=== PATIENT | female | born 1985 | race Caucasian/White ===

== ENCOUNTER 2020-08-17 17:07 | Emergency (ER) | payer OTHER ==
[~2020-08-17] VITALS: Ht 167.6 cm; Wt 84.7 kg
[~2020-08-17 17:07] MED LIST: FERR325T18 PO
--- NOTE | 2020-08-17 17:28 | NUR ---
ROB RN: C-COLLAR ON
[2020-08-17 18:33] VITALS: BP 162/95
--- NOTE | 2020-08-17 20:05 | NUR ---
SECURITY NURSE NOTE: RE-EVALUATION DONE. PATIENT DISCHARGED WITH INSTRUCTION. VERBALIZED UNDERSTANDIGN.
== END 2020-08-17 20:10 | disposition home or self-care (01) ==
LOC: ED 20:01
DX: S16.1XXA Strain of muscle, fascia and tendon at neck level, initial encounter (principal); S09.90XA Unspecified injury of head, initial encounter; M25.512 Pain in left shoulder; V89.2XXA Person injured in unspecified motor-vehicle accident, traffic, initial encounter; Y93.89 Activity, other specified; Y92.410 Unspecified street and highway as the place of occurrence of the external cause; Y99.8 Other external cause status
CPT/HCPCS: 70450; 72125; 99285